=== PATIENT | male | born 1935 | race Caucasian/White ===

== ENCOUNTER → 2016-08-21 | Outpatient (CLI) | payer MEDICARE, BC ==
[~2016-08-21] MED LIST: AMLODIPINE BESYL5 MG PO; B12,B-12,B 12500 MC1 PO; COUMADIN5 M2 PO; DOXYCYCLINE100 M3 PO; LANTUS100 U/ML SC; LASIX40 MG PO; LOPRESSOR50 M1 PO; NORCO 5-325 TA1 EACH PO; TEMAZEPAM15 M1 PO; ZESTRIL5 MG PO
== END | disposition home or self-care (01) ==
LOC: RAD 13:33
DX: R06.02 Shortness of breath (principal); R05 Cough; R09.89 Other specified symptoms and signs involving the circulatory and respiratory systems; I51.7 Cardiomegaly; Z87.891 Personal history of nicotine dependence; I10 Essential (primary) hypertension; I25.10 Atherosclerotic heart disease of native coronary artery without angina pectoris

== ENCOUNTER → 2016-11-03 | Outpatient (CLI) | payer MEDICARE, BC | END | disposition home or self-care (01) | LOC: CT 08:43 → LAB 08:43 → CT 09:00 | PROVIDERS: Radiology Diagnostic Radiology | DX: K59.00 Constipation, unspecified (principal); R14.0 Abdominal distension (gaseous); R10.9 Unspecified abdominal pain ==

== ENCOUNTER 2016-11-04 10:32 | Emergency (ER) | payer MEDICARE, BC ==
[2016-11-04 11:37] LABS: BASO % 0.5 % (0.0-1.0); EOS # 0.1 10*3/uL (0.0-0.4); EOS % 1.4 % (1.0-4.0); HEMATOCRIT 34.6 % (42.0-52.0); HEMOGLOBIN 10.9 g/dl (14.0-18.0); LYMPH # 1.1 10*3/uL (1.3-4.4); LYMPH % 13.1 % (27.0-41.0); MEAN CELL VOLUME 89.2 fl (80.0-94.0); MEAN CORPUSCULAR HGB 28.1 pg (27.0-31.0); MEAN CORPUSCULAR HGB CONC 31.5 g/dl (33.0-37.0); MEAN PLATELET VOLUME 9.7 fl (9.6-12.3); MONO # 0.8 10*3/uL (0.1-1.0); MONO % 9.6 % (3.0-9.0); NEUT # 6.4 10*3/uL (2.3-7.9); NEUT % 75.2 % (47.0-73.0); PLATELET COUNT AUTOMATED 181 10*3/uL (130-400); RED BLOOD COUNT 3.88 10*6/uL (4.50-5.90); RED CELL DISTRI WIDTH 16.9 % (0-14.5); WHITE BLOOD COUNT 8.6 10*3/uL (4.8-10.8)
[2016-11-04 11:54] LABS: ALBUMIN 3.3 gm/dl (3.1-4.5); BILIRUBIN, TOTAL 0.5 mg/dl (0.2-1.0); POTASSIUM 5.4 mmol/L (3.5-5.1); TOTAL PROTEIN 7.8 gm/dL (6.4-8.2); TROPONIN I 0.016 ng/ml (<0.045)
[2016-11-04 15:27] LABS: INTERNATIONAL NORM RATIO 1.3 (2.0-3.5); PROTHROMBIN TIME 13.5 SECONDS (9.0-12.4)
== END 2016-11-04 15:44 | disposition short-term general hospital (02) ==
LOC: ED 10:32
PROVIDERS: Emergency Medicine Emergency Medical Services
DX: M62.81 Muscle weakness (generalized) (principal); I48.91 Unspecified atrial fibrillation; I25.10 Atherosclerotic heart disease of native coronary artery without angina pectoris; I12.9 Hypertensive chronic kidney disease with stage 1 through stage 4 chronic kidney disease, or unspecified chronic kidney disease; N18.4 Chronic kidney disease, stage 4 (severe); I25.2 Old myocardial infarction; E11.65 Type 2 diabetes mellitus with hyperglycemia; I77.89 Other specified disorders of arteries and arterioles; Z79.02 Long term (current) use of antithrombotics/antiplatelets; Z85.038 Personal history of other malignant neoplasm of large intestine; Z79.899 Other long term (current) drug therapy

== ENCOUNTER 2016-12-07 12:10 | Inpatient (IN) | payer MEDICARE, BC ==
[~2016-12-07] VITALS: Ht 182.8 cm; Wt 109.3 kg
--- NOTE | ~2016-12-07 | EKG ---
[place], [place] ELECTROCARDIOGRAM REPORT NAME: YAMEL NEGRETE UNIT #: [id number] ROOM: [facility] DOCTOR: FAY HAMMOND MD BIRTHDATE: [birth year] DOS: 12/07/2016 TIME: 1358 in the afternoon. FINDINGS: Normal sinus rhythm with first degree AV block, right bundle branch block, abnormal electrocardiogram. FAY HAMMOND MD CM:EKGRPT:ELECTROCARDIOGRAM REPORT 50 [phone] FAY HAMMOND MD
--- NOTE | ~2016-12-07 | CON ---
[place], [place] REPORT OF CONSULTATION NAME: [facility]GRETE [id number] UNIT #: [id number] ROOM: 515 DOCTOR: VANNESSA GALLEGO MD BIRTHDATE: [birth year] DOS: 12/07/2016 HISTORY OF PRESENT ILLNESS: This is an 81-year-old who has presented with chief complaint of rectal bleeding and was undergoing investigation for his preop and arthrectomy which is scheduled for next week. He was found to have INR greater than 7.5 and he has a history of cerebrovascular accident with right-sided hemiparesis. PAST MEDICAL HISTORY: Also associated with diabetes mellitus, colonic carcinomas, chronic coronary artery disease, carotid artery disease, hypertension, obesity, atrial fibrillation, and constipation. At the present time, Coumadin toxicity. PAST SURGICAL HISTORY: Abdominal aorta and colonic resection and bilateral hip and back surgery, and coronary artery bypass. SOCIAL HISTORY: Past history of smoking and alcohol in the past. FAMILY HISTORY: Noncontributory. REVIEW OF SYSTEMS: HEENT: Denies double vision, blurred vision. RESPIRATORY: Denies shortness of breath. CARDIOVASCULAR: Denies chest pain. DIGESTIVE SYSTEM: Blood in the stool, history of colonic carcinoma. PHYSICAL EXAMINATION: VITAL SIGNS: Stable. HEENT: Head normocephalic, nontraumatic. Mouth and buccal mucosa benign. NECK: Supple, no thyromegaly. CHEST: Symmetric anatomy, decreased air entry bilaterally. HEART: Atrial fibrillation, moderate ventricular response. ABDOMEN: Obese, large, soft. No hepato-organomegaly. Bowel sounds present. EXTREMITIES: Pedal edema. Stasis dermatitis, particularly in right leg. Upper extremity edema as well. Multiple small hematomas. NEUROLOGIC: Alert, right-sided hemiplegia, status post CVA. IMPRESSION: Gastrointestinal bleed secondary to Coumadin toxicity, Coumadin toxicity. LABORATORY DATA: CBC differential, white blood cell is 13, H of 8 and 25. Comprehensive metabolic panel: BUN and creatinine 71 and 3.1, renal insufficiency. Liver function test normal. INR 7.2, prothrombin 86 seconds and PTT 57 seconds. CPK-MB was noticed. Labs reviewed, records reviewed. IMPRESSION AND PLAN: Colonic carcinoma, status post resection, status post radiation, Coumadin toxicity at the present time, otherwise, as indicated in the paragraph of past medical and surgical history. [place], [place] REPORT OF CONSULTATION NAME: YAMEL NEGRETE UNIT #: [id number] ROOM: 515 DOCTOR: JULIÁN ARGUETA,VANNESSA BIRTHDATE: [birth year] PLAN AND DISCUSSION: Reversal of Coumadin toxicity, observation of H and H tomorrow morning with another CBC and daily CBC x 2, observation of basic metabolic panel with concerns about renal status and Protonix 40 mg daily and clinical reassessment. VANNESSA GALLEGO MD CM:CONSTR:REPORT OF CONSULTATION 99 12/08/16 0354 interface
[2016-12-07 12:15] VITALS: BP 100/52
[2016-12-07] MEDS ORDERED: METFORMIN500 MG PO (12:21)
[2016-12-07] MEDS ORDERED: Lovenox80 MG/0.8 SC (12:22)
[2016-12-07] MEDS ORDERED: SYMBICORT1 AE1 INH (12:23)
[2016-12-07] MEDS ORDERED: ATORVASTATIN CA40 M1 PO (12:24)
[2016-12-07] MEDS ORDERED: ASPIRIN BUFFER325 MG PO (12:24)
[2016-12-07] MEDS ORDERED: NATURE'S BLEND F1 MG PO (12:25)
[2016-12-07 12:39] LABS: BASO % 0.1 % (0.0-1.0); EOS # 0.1 10*3/uL (0.0-0.4); EOS % 0.4 % (1.0-4.0); HEMATOCRIT 25.9 % (42.0-52.0); HEMOGLOBIN 8.3 g/dl (14.0-18.0); IG # 0.1 10*3/uL (0.0-0.1); LYMPH # 1.2 10*3/uL (1.3-4.4); LYMPH % 8.4 % (27.0-41.0); MEAN CELL VOLUME 91.8 fl (80.0-94.0); MEAN CORPUSCULAR HGB 29.4 pg (27.0-31.0); MEAN PLATELET VOLUME 9.5 fl (9.6-12.3); MONO # 1.5 10*3/uL (0.1-1.0); MONO % 10.6 % (3.0-9.0); NEUT # 11.1 10*3/uL (2.3-7.9); PLATELET COUNT AUTOMATED 123 10*3/uL (130-400); RED BLOOD COUNT 2.82 10*6/uL (4.50-5.90); RED CELL DISTRI WIDTH 18.6 % (0-14.5); WHITE BLOOD COUNT 13.9 10*3/uL (4.8-10.8)
[2016-12-07 12:53] LABS: ALBUMIN 2.9 gm/dl (3.1-4.5); BILIRUBIN, TOTAL 0.4 mg/dl (0.2-1.0); POTASSIUM 4.7 mmol/L (3.5-5.1); TOTAL PROTEIN 7.3 gm/dL (6.4-8.2)
[2016-12-07 13:06] LABS: PROTHROMBIN TIME 86.3 SECONDS (9.0-12.4)
[2016-12-07 13:13] LABS: INTERNATIONAL NORM RATIO 7.2 (2.0-3.5)
[2016-12-07] MEDS ORDERED: NORVASC10 MG PO (14:50)
[2016-12-07] MEDS ORDERED: ECOTRIN325 M1 PO (14:51)
[2016-12-07] MEDS ORDERED: COUMADIN7.5 M1 PO (14:55)
[2016-12-07] MEDS ORDERED: METFORMIN XR500 MG PO (14:55)
[2016-12-07 16:00] VITALS: BP 130/65
[2016-12-07 18:25] LABS: CKMB 2.1 ng/ml (0.5-3.6); CPK 60 U/L (39-308)
[2016-12-07 18:34] LABS: TROPONIN I < 0.015 ng/ml (<0.045)
[2016-12-07 20:00] VITALS: BP 133/60
[2016-12-08] VITALS: BP 110/65
[2016-12-08 00:24] LABS: CKMB 1.6 ng/ml (0.5-3.6); CPK 64 U/L (39-308)
[2016-12-08 00:29] LABS: TROPONIN I < 0.015 ng/ml (<0.045)
[2016-12-08 06:32] LABS: BASO % 0.3 % (0.0-1.0); EOS # 0.2 10*3/uL (0.0-0.4); EOS % 1.4 % (1.0-4.0); HEMATOCRIT 26.2 % (42.0-52.0); HEMOGLOBIN 8.2 g/dl (14.0-18.0); IG # 0.1 10*3/uL (0.0-0.1); LYMPH # 1.1 10*3/uL (1.3-4.4); LYMPH % 9.1 % (27.0-41.0); MEAN CELL VOLUME 91.9 fl (80.0-94.0); MEAN CORPUSCULAR HGB 28.8 pg (27.0-31.0); MEAN CORPUSCULAR HGB CONC 31.3 g/dl (33.0-37.0); MEAN PLATELET VOLUME 10.1 fl (9.6-12.3); MONO # 1.3 10*3/uL (0.1-1.0); NEUT # 9.3 10*3/uL (2.3-7.9); NEUT % 77.5 % (47.0-73.0); PLATELET COUNT AUTOMATED 137 10*3/uL (130-400); RED BLOOD COUNT 2.85 10*6/uL (4.50-5.90); RED CELL DISTRI WIDTH 18.5 % (0-14.5)
[2016-12-08 06:41] LABS: CKMB 1.7 ng/ml (0.5-3.6)
[2016-12-08 06:43] LABS: CPK 47 U/L (39-308); TROPONIN I < 0.015 ng/ml (<0.045)
[2016-12-08 06:59] LABS: MAGNESIUM 2.4 mg/dL (1.5-2.1); PHOSPHOROUS 3.3 mg/dL (2.5-4.9); POTASSIUM 4.3 mmol/L (3.5-5.1)
[2016-12-08 07:10] LABS: PROTHROMBIN TIME 60.9 SECONDS (9.0-12.4)
[2016-12-08 07:17] LABS: INTERNATIONAL NORM RATIO 5.2 (2.0-3.5)
[2016-12-08 07:20] LABS: HEMOGLOBIN A1c 7.1 % (4.8-5.6)
[2016-12-08 08:00] VITALS: BP 116/72
[2016-12-08 11:55] LABS: HEMATOCRIT 25.4 % (42.0-52.0)
[2016-12-08 12:00] VITALS: BP 105/66
== END 2016-12-08 14:16 | disposition home or self-care (01) | DRG 377 ==
LOC: ED 12:10 → EDHOLD 13:41 → 5E 14:00
PROVIDERS: Internal Medicine; Nurse Practitioner Family
DX: K92.2 Gastrointestinal hemorrhage, unspecified (principal); N17.0 Acute kidney failure with tubular necrosis; E44.0 Moderate protein-calorie malnutrition; E11.22 Type 2 diabetes mellitus with diabetic chronic kidney disease; I48.0 Paroxysmal atrial fibrillation; N18.4 Chronic kidney disease, stage 4 (severe); E11.65 Type 2 diabetes mellitus with hyperglycemia; I12.9 Hypertensive chronic kidney disease with stage 1 through stage 4 chronic kidney disease, or unspecified chronic kidney disease; E83.41 Hypermagnesemia; D62 Acute posthemorrhagic anemia; I25.10 Atherosclerotic heart disease of native coronary artery without angina pectoris; E66.01 Morbid (severe) obesity due to excess calories; R07.89 Other chest pain; Z96.643 Presence of artificial hip joint, bilateral; Z85.038 Personal history of other malignant neoplasm of large intestine; Z90.49 Acquired absence of other specified parts of digestive tract; Z95.1 Presence of aortocoronary bypass graft; Z87.891 Personal history of nicotine dependence; Z82.49 Family history of ischemic heart disease and other diseases of the circulatory system; Z79.82 Long term (current) use of aspirin; Z79.84 Long term (current) use of oral hypoglycemic drugs; Z79.4 Long term (current) use of insulin; Z79.899 Other long term (current) drug therapy; Z79.01 Long term (current) use of anticoagulants; Z92.3 Personal history of irradiation; Z68.32 Body mass index [BMI] 32.0-32.9, adult; T45.515A Adverse effect of anticoagulants, initial encounter

== ENCOUNTER → 2017-05-23 | Outpatient (CLI) | payer MEDICARE, BC ==
[~2017-05-23] MED LIST changes: +ASPIRIN BUFFER325 MG PO; +ATORVASTATIN CA40 M1 PO; +COUMADIN7.5 M1 PO; +ECOTRIN325 M1 PO; +Lovenox80 MG/0.8 SC; +METFORMIN XR500 MG PO; +METFORMIN500 MG PO; +NATURE'S BLEND F1 MG PO; +NORVASC10 MG PO; +SYMBICORT1 AE1 INH
== END | disposition home or self-care (01) ==
LOC: US 14:09
DX: R60.0 Localized edema (principal)